=== PATIENT | male | born 1940 | race Caucasian/White ===

== ENCOUNTER → 2022-06-18 | Outpatient (CLI) | payer OTHER, SELFPAY ==
[2022-06-18 17:02] LABS: Free T3 2.1 pg/mL (2.18-3.98); T4 Free Direct 1.01 ng/dL (0.76-1.46); Thyroid Stim Hormone (TSH) 4.66 uIU/mL (0.358-3.74)
== END | disposition home or self-care (01) ==
PROVIDERS: PCP Internal Medicine
DX: E03.9 Hypothyroidism, unspecified (principal)
CPT/HCPCS: 36415; 84439; 84443; 84481

== ENCOUNTER → 2024-06-07 | Outpatient (CLI) | payer MEDICARE, OTHER, SELFPAY ==
--- NOTE | 2024-06-07 13:04 | CDU_ITS ---
Reason For Study: DIPLOPIA Rt. Velocities/BP Lt. Velocities/BP Prox CCA 93.8/4.7 cm/sec. Prox CCA 102.1/10.8 cm/sec. Mid CCA 78.7/8.4 cm/sec. Mid CCA 105.8/10.8 cm/sec. Dist CCA 73.2/9.5 cm/sec. Dist CCA 80.2/10.8 cm/sec. Prox ICA 50.0/5.6 cm/sec. Prox ICA 65.3/7.6 cm/sec. Mid ICA 42.0/10.1 cm/sec. Mid ICA 53.0/11.3 cm/sec. Dist ICA 61.8/12.3 cm/sec. Dist ICA 38.2/8.7 cm/sec. Rt. ICA/CCA = 61.8/78.7=0.8. Lt. ICA/CCA = 65.3/105.8=0.6. Prox ECA 119.8/0.0 cm/sec. Prox ECA 109.4/0.0 cm/sec. Rt. Vert. 49.7/7.9 cm/sec. Lt. Vert. 38.2/10.6 cm/sec. Right Extracranial There is intimal thickening but no significant atherosclerotic plaque noted in the right common carotid artery. There is heterogeneous, irregular atherosclerotic plaque noted in the right internal carotid artery. There is no significant atherosclerotic plaque noted in the right external carotid artery. Antegrade flow is noted in the right vertebral artery. Left Extracranial There is intimal thickening but no significant atherosclerotic plaque noted in the left common carotid artery. There is intimal thickening but no significant atherosclerotic plaque noted in the left internal carotid artery. The left internal carotid artery is not well visualized. There is intimal thickening but no significant atherosclerotic plaque noted in the left external carotid artery. Antegrade flow is noted in the left vertebral artery. Procedure Carotid Duplex 29137. This is a Carotid Duplex examination using B-mode, color flow and specral Doppler. The study was technically difficult. Exam performed in department. VL/Carotid Duplex Ultrasound Interpretation Summary Mild (<50%) stenosis right extracranial internal carotid. No significant athero sclerotic plaque or stenosis noted in the left internal carotid artery. Flow within the vertebral a rteries is antegrade bilaterally. Ordering Physician: Horace Espinal Referring Physician: Ryder Tate; Eusebio Espinosa Performed By: Lilia Gould, MAIKEL, RVT
== END | disposition home or self-care (01) ==
PROVIDERS: PCP Internal Medicine; Referring Provider Ophthalmology; Visit Provider Ophthalmology
DX: H53.2 Diplopia (principal)
CPT/HCPCS: 93880